=== PATIENT | male | born 1945 | race Caucasian/White ===

== ENCOUNTER 2022-04-09 06:43 | Emergency (ER) | payer OTHER ==
[~2022-04-09] VITALS: Ht 198.1 cm; Wt 80.0 kg
[2022-04-09] MEDS ORDERED: methylPREDNISolone SOD SUCC 125 MG/2 ML VL IV ONE (07:00)
[2022-04-09] MEDS ORDERED: AZITHROMYCIN 500MG/ 250ML 250 ML IV ONE (07:00)
[2022-04-09] MEDS ORDERED: cefTRIAXone 1GM/50ML D5W 50 ML IV ONE (07:00)
[2022-04-09 07:43] LABS: Basophils # (auto) 0 10 ^3/uL (0-0.2); Eosinophils # (auto) 0 10 ^3/uL (0-0.8); Monocytes # (auto) 0.8 10 ^3/uL (0-1.3)
[2022-04-09 07:45] LABS: Basophils % (auto) 0.6 % (0.0-2.0); Eosinophils % (auto) 0.3 % (0.0-7.0); Hematocrit 41.2 % (41.0-53.0); Lymphocytes % (auto) 14.6 % (10.0-50.0); Mean Corpuscular Hemoglobin 34.7 pg (28.0-32.0); Mean Corpuscular Hgb Conc. 33.9 g/dL (32.0-36.0); Mean Corpuscular Volume 102.3 fL (80.0-100.0); Neutrophils % (auto) 72.5 % (37.0-80.0); Red Blood Cells 4.03 10^6/uL (4.5-5.90); Red Cell Distribution Width 13.6 % (11.8-14.3)
[2022-04-09 08:09] LABS: Albumin 3.7 g/dL (3.4-5.0); Calcium 8.5 mg/dL (8.5-10.1)
[2022-04-09 08:13] LABS: BUN/Creatinine Ratio 14.4; Bilirubin, Total 1.1 mg/dL (0.2-1.0); Total Protein 6.4 g/dL (6.4-8.2)
[2022-04-09 09:34] LABS: Urine WBC None Seen /hpf (0 - 3)
[2022-04-09 10:08] LABS: Urine Bacteria NONE SEEN /hpf (None Seen); Urine Blood Negative /uL (Negative); Urine Hyaline Cast FEW /lpf (0 - 2); Urine Mucus FEW (None Seen); Urine Specific Gravity 1.018 (1.001-1.035)
[2022-04-09 16:00] VITALS: BP 142/82
[2022-04-09] MEDS ORDERED: LEVO-28 PO (16:10)
[2022-04-09] MEDS ORDERED: PRED20TA2 PO (16:10)
== END 2022-04-09 17:56 | disposition home or self-care (01) ==
LOC: ER 06:43 → EDBD 06:43 → ER 17:22
DX: U07.1 COVID-19 (principal); I10 Essential (primary) hypertension
CPT/HCPCS: 36415; 71045; 80053; 81001; 83605; 83880; 84484; 85025; 85379; 87040; 87426; 87804; 93005; 96365; 96366; 96368; 96375; 99285; J0456; J0696; J2930

== ENCOUNTER 2022-08-30 08:38 | Emergency (ER) | payer OTHER ==
[~2022-08-30] VITALS: Ht 195.6 cm; Wt 79.0 kg
[~2022-08-30 08:38] MED LIST: LEVO-28 PO; PRED20TA2 PO
[2022-08-30] MEDS ORDERED: SODIUM CHLORIDE 0.9% 1,000 ML IV ONE (08:45)
[2022-08-30 09:13] LABS: Eosinophils # (auto) 0.1 10 ^3/uL (0-0.8); White Blood Cell 3.6 10^3/uL (4.4-10.8)
[2022-08-30 09:14] LABS: Basophils # (auto) 0.1 10 ^3/uL (0-0.2); Basophils % (auto) 2.5 % (0.0-2.0); Eosinophils % (auto) 1.7 % (0.0-7.0); Hematocrit 40.2 % (41.0-53.0); Hemoglobin 14.1 g/dL (13.5-17.5); Lymphocytes # (auto) 1.2 10 ^3/uL (0.4-5.4); Lymphocytes % (auto) 34.1 % (10.0-50.0); Mean Corpuscular Hemoglobin 36.2 pg (28.0-32.0); Mean Corpuscular Hgb Conc. 35.2 g/dL (32.0-36.0); Mean Corpuscular Volume 102.9 fL (80.0-100.0); Monocytes # (auto) 0.3 10 ^3/uL (0-1.3); Monocytes % (auto) 8.2 % (0.0-12.0); Neutrophils # (auto) 1.9 10 ^3/uL (1.6-8.6); Neutrophils % (auto) 53.5 % (37.0-80.0); Red Cell Distribution Width 15.3 % (11.8-14.3)
[2022-08-30 09:45] LABS: Urine Bacteria NONE SEEN /hpf (None Seen); Urine Blood Negative /uL (Negative); Urine Hyaline Cast FEW /lpf (0 - 2); Urine Mucus FEW (None Seen); Urine Specific Gravity 1.016 (1.001-1.035); Urine WBC 1 /hpf (0 - 3)
[2022-08-30 09:48] LABS: Potassium 4.3 mmol/L (3.5-5.1)
[2022-08-30 09:49] LABS: Albumin 3.9 g/dL (3.4-5.0); Bilirubin, Total 0.9 mg/dL (0.2-1.0); Calcium 8.8 mg/dL (8.5-10.1); Total Protein 5.6 g/dL (6.4-8.2)
[2022-08-30 10:03] LABS: Alcohol, Urine < 3.0 mg/dL (0-10); Amphetamine Screen, Urine NEGATIVE (NEGATIVE); Barbiturate Scree,Urine NEGATIVE (NEGATIVE); Benzodiazephine Screen, Urine NEGATIVE (NEGATIVE); Cannabinoid Screen, Urine NEGATIVE (NEGATIVE); Cocaine Screen, Urine NEGATIVE (NEGATIVE); Opiate Scree,Urine NEGATIVE (NEGATIVE); Phencyclidine Screen, Urine NEGATIVE (NEGATIVE)
[2022-08-30 13:05] VITALS: BP 130/68
== END 2022-08-30 13:17 | disposition home or self-care (01) ==
LOC: EDBD 08:38 → ER 08:38
DX: T44.7X1A Poisoning by beta-adrenoreceptor antagonists, accidental (unintentional), initial encounter (principal); I48.91 Unspecified atrial fibrillation; I10 Essential (primary) hypertension; Z79.899 Other long term (current) drug therapy; Y92.89 Other specified places as the place of occurrence of the external cause
CPT/HCPCS: 36415; 71045; 80053; 80307; 81001; 84484; 85025; 93005